=== PATIENT | female | born 1975 | race Caucasian/White ===

== ENCOUNTER 2016-11-06 13:11 | Emergency (ER) | payer OTHER ==
[2016-11-06] MEDS ORDERED: ASPIRIN 81 MG CHEW TAB PO ONE (13:23)
[2016-11-06] MEDS ORDERED: MAG HYDROX/AL HYDROX/SIMETH 30 ML, Lidocaine 2%Visc 15ml 20 MG, PHENobarb/HYOSCY/ATROPI... PO ONE ×3 (13:25)
[2016-11-06] MEDS: NITROGLYCERIN 0.4 MG TAB.SUBL SL PRN ×2 (13:26→13:52)
[2016-11-06 13:39] LABS: MEAN CORPUSCULAR HEMOGLOBIN 33.9 pg (28.0-34.0)
[2016-11-06] MEDS ORDERED: Lidocaine 2%Visc 15ml 20 MG/ML UDC ONE (13:39)
[2016-11-06] MEDS ORDERED: MAGNESIUM HYDROXIDE/AL HYDROX 30 ML UDC PO ONE (13:39)
[2016-11-06 13:48] LABS: eGFR (African) > 60; eGFR (Non-African) > 60
[2016-11-06 13:53] LABS: EOSINOPHILS % 1 % (0-7); MONOCYTES % 2 % (0-11); SEGMENTED NEUTROPHILS % 84 % (39-79)
[2016-11-06] MEDS ORDERED: METOPROLOL TARTRATE 5 MG/5 ML VIAL IVP ONE (14:05)
[2016-11-06] MEDS ORDERED: HEPARIN SODIUM 5000 UNIT/1 ML IV ONE (14:05)
--- NOTE | 2016-11-06 14:10 | ED Physician Documentation ---
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 given asa 325 plus ntg sl per ems.ll onset approx 1245hrs-none previously. Timing: gradual onset Duration: constant, waxing, waning, gradual Last known Well Date: 11/06/16 Last Known Well Time: 12:45 Context: activity (driving car [address]) Severity: moderate Quality: pressure, tightness, aching, sharp Chest Pain Radiation: other (rt shoulder) Chest Pain Signs/Symptoms: diaphoresis. denies: nausea, vomiting Relieved By: nitroglycerin - ROS CONST: no problems MS/LYMPH: none GI/: other (hx gerd-on omiprazole) EYES/ENT: denies: problems with vision SKIN/ENDO: none NEURO/PSYCH: none - PAST HX PR risk factors: no pertinent history (some in distant family) DVT/PE Risk Factors: none Neuro deficit: none GI disease: GERD Lung disease: none Surgeries/Procedures: cholecysectomy, appendectomy, hysterectomy, other (lap band) Allergies/Adverse Reactions: Allergies Allergy/AdvReac Type Severity Reaction Status Date / Time erythromycin base Allergy Verified 11/06/16 13:28 Penicillins Allergy Verified 11/06/16 13:28 Home Medications: Ambulatory Orders Medication Instructions Recorded Alprazolam [Alprazolam] 0.5 mg PO BID PRN 11/06/16 Omeprazole [Omeprazole] 40 mg PO HS 11/06/16 Valacyclovir HCl [Valacyclovir] 500 mg PO BID 11/06/16 - SOCIAL HX Smoking History: non-smoker Alcohol Use: none Drug Use: none - FAMILY HX Family HX: denies: CAD under 55 - VITAL SIGNS Vital Signs: Vital Signs Temp Pulse Resp BP Pulse Ox 98.4 F 113 H 20 126/83 99 11/06/16 13:28 11/06/16 13:53 11/06/16 13:28 11/06/16 13:28 11/06/16 13:53 - REVIEWED ASSESSMENTS Nursing Assessment Reviewed: Yes Vitals Reviewed: Yes ED Results Lab/Radiology - Lab Results Lab Results: Lab Results 11/06/16 11/06/16 11/06/16 13:30 13:30 13:30 WBC 11.30 K/ul K/ul (4.00-12.00) RBC 4.36 M/ul M/ul (3.90-5.20) Hgb 14.8 g/dL g/dL (12.0-16.0) Hct 43.5 % % (34.5-46.5) MCV 99.8 fl fl (80.0-100.0) MCH 33.9 pg pg (28.0-34.0) MCHC 33.9 g/dL g/dL (30.0-36.0) RDW 12.7 % % (11.3-14.3) Plt Count 310 K/mm3 K/mm3 (130-400) Seg Neutrophils % 84 % H % (39-79) Band Neutrophils % 4 % % (0-12) Lymphocytes % 9 % L % (16-50) Monocytes % 2 % % (0-11) Eosinophils % 1 % % (0-7) Plt Morphology Comment Normal (NORMAL) RBC Morph Comment Normal (NORMAL) Sodium 138 mmol/L mmol/L (136-145) Potassium 3.7 mmol/L mmol/L (3.5-5.0) Chloride 106 mmol/L mmol/L (98-110) Carbon Dioxide 26 mmol/L mmol/L (20-32) BUN 23 mg/dL mg/dL (10-26) Creatinine 0.6 mg/dL mg/dL (0.4-1.5) Estimated Creat Clear 277 Est GFR ( Amer) > 60 (60 - ) Est GFR (Non-Af Amer) > 60 (60 - ) Glucose 113 mg/dL H mg/dL (70-99) Calcium 9.6 mg/dL mg/dL (8.5-10.5) Total Bilirubin 0.6 mg/dL mg/dL (0.2-1.2) AST 31 U/L U/L (0-41) ALT 27 U/L U/L (0-45) Alkaline Phosphatase 64 U/L U/L (46-116) Creatine Kinase 37 U/L U/L (0-225) Troponin I < 0.03 ng/mL L ng/mL (0.03-0.06) Total Protein 7.5 g/dL g/dL (6.0-8.5) Albumin 4.8 g/dL g/dL (3.0-5.5) - Orders Orders: ED Orders Category Date Time Status Continuous EKG monitoring Q30M Care 11/06/16 13:23 Active Continuous Pulse Oximetry Q30M Care 11/06/16 13:[address] Saline Lock/IV NOW Care 11/06/16 13:23 Active CHEST 1 VIEW [RAD] Stat Exams 11/06/16 13:23 Ordered CBC/PLATELET/DIFF Routine Lab 11/06/16 13:30 Completed CMP Routine Lab 11/06/16 13:30 Completed CREATINE KINASE Routine Lab 11/06/16 13:30 Completed TROPONIN I (cTnI) Stat Lab 11/06/16 13:30 Completed TSH [THYROID STIMULATING HORMONE] Stat Lab 11/06/16 13:30 Received Aspirin Med 11/06/16 13:23 Discontinued 324 mg PO NOW ONE Heparin Sodium [Heparin] Med 11/06/16 14:05 Once 5,000 unit IV NOW ONE Lidocaine 2%Visc 15ml [Xylocaine] Med 11/06/16 13:39 Discontinued 300 mg .ROUTE .STK-MED ONE Mag Hydrox/Al Hydrox/Simeth [Mylanta] 30 ml Med 11/06/16 13:25 Discontinued Lidocaine 2%Visc 15ml [Xylocaine] 20 mg PHENobarb/HYOSCY/ATROPINE/SCOP [] 10 ml PO NOW Magnesium Hydroxide/Al Hydrox [Maalox] Med 11/06/16 13:39 Discontinued 30 ml PO .STK-MED ONE Metoprolol Tartrate [Toprol] Med 11/06/16 14:05 Once 5 mg IVP NOW ONE Nitroglycerin [Nitroquick] Med 11/06/16 13:23 Ordered 0.4 mg SL Q5M PRN Oxygen Daily Oxygen 11/06/16 13:30 Ordered EKG WITH COMPARISON Stat Ther 11/06/16 13:23 Ordered Chest Pain Physical Exam - EXAM General Appearance: moderate distress EENT: eye inspection normal Neck: nml inspection, no carotid bruit, other (thryoid non palpable). No: lymphadenopathy CVS: tachycardia (120-130) Abdomen: soft, non-tender Skin: warm/dry, normal color. No: cyanosis, diaphoresis, jaundice Extremities: non-tender, normal range of motion, no evidence of injury Neuro: oriented X3, CN's nml as tested, motor nml, sensation nml, mood/affect nml Discharge Clincal Impression: Chest pain, Hx of gastroesophageal reflux (GERD), prev lap band surgery Home Medications: Ambulatory Orders Alprazolam [Alprazolam] 0.5 mg PO BID PRN 11/06/16 Omeprazole [Omeprazole] 40 mg PO HS 11/06/16 Valacyclovir HCl [Valacyclovir] 500 mg PO BID 11/06/16 Comments: disc cond w/ pt [facility] [place]-will tnsf Condition: Fair Disposition: XFER SHT-TRM HOSP Decision to Admit: NO Decision Time: 14:17
[2016-11-06] MEDS ORDERED: 0.9 % SODIUM CHLORIDE 1,000 ML IV ONE (14:35)
--- NOTE | 2016-11-06 14:39 | Diagnostic Imaging Report ---
[facility] [address] [facility] [address] [address] Report Submission Date: Nov 06, 2016 1:52:59 PM ASSOCIATE DIRECTOR QA Patient Study Name: SHAHEED MENDEZ Date: Nov 06, 2016 1:41:27 PM ASSOCIATE DIRECTOR QA Modality Type: CR Gender: F Description: CHEST : 77 Institution: [facility] Physician OBED BENITEZ - ER Chest, 1 view History: CHEST PAIN Findings: The heart size is normal. The lungs are clear. There is no pleural effusion or pneumothorax identified. The osseous structures are normal. Impression: 1. No acute pulmonary disease. Electronically signed on Nov 06, 2016 1:52:59 PM ASSOCIATE DIRECTOR QA by: Piyush PORTER
[2016-11-06] MEDS ORDERED: NITROGLYCERIN 0.4MG/HR PATCH TD ONE (14:40)
[2016-11-06 15:00] VITALS: BP 112/77
[2016-11-06] MEDS ORDERED: NITROGLYCERIN 0.4 MG TAB.SUBL SL ONE (15:19)
[2016-11-06] MEDS ORDERED: NITROGLYCERIN 2% 1GM OINT PACKET...G. TD SCH (21:00)
== END 2016-11-06 14:57 | disposition short-term general hospital (02) ==
LOC: ED 13:11
DX: R07.9 Chest pain, unspecified (principal); K21.9 Gastro-esophageal reflux disease without esophagitis; Z98.84 Bariatric surgery status
CPT/HCPCS: 71010; 80053; 82550; 84443; 84484; 85025; 96372; 96374; 96375; 99283; J1644; J3490; A9270-GY; J7030